=== PATIENT | female | born 1950 | race Caucasian/White ===

== ENCOUNTER 2019-09-17 22:01 | Emergency (ER) | payer OTHER ==
[2019-09-17 22:24] VITALS: BP 100/63; PULSE 94; TEMP 99; BMI 30.9
--- NOTE | 2019-09-17 23:36 | PDOC ---
*Physical Exam - Vital Signs Last Vital Signs Temp Pulse Resp BP Pulse Ox 99.0 F 94 H 20 100/63 95 09/17/19 22:15 09/17/19 22:15 09/17/19 22:15 09/17/19 22:15 09/17/19 22:15 - Physical Exam 09/17/19 23:16 PCP: Dr. Freedom Dobbs at [facility] Psych: Dr. Davis at [facility] Development Technical Lead: Mehreen HPI: 69yo F pmh Alzheimer, dementia, schizophrenia, depression, HLD, BIBEMS after being a found missing person (missing for 1 hour). I spoke with clinical case manager Mehreen at [facility] who were the only staff memeber this afternoon when patient Pedro walked out and was missing for evening medications. Mehreen called 911, and police found Ms. Vasquez shortly thereafter. Mehreen expressed concern that their program is no longer a good fit as patient can walk in and out of the house but cannot be changes to a new facility due to state regulations. Memory problems, Alzheimer, dementia, cannot find adequate housing. Last time escaped was last winter. All: NKDA Meds: Zyprexa 10mg qHS, MVI, Donepezil Hcl 5mg qHS, Atorvastatin Ca 20mg qHS PMH: As above PSH: Denies Medical Decision Making - Medical Decision Making 09/17/19 23:36 69yo F pmh Alzheimer, dementia, schizophrenia, depression, HLD, BIBEMS after being a found missing person (missing for 1 hour). Discharge - Discharge Information Problems reviewed: Yes Clinical Impression/Diagnosis: Well adult exam Condition: Stable Disposition: HOME - Admission No - Follow up/Referral Referrals: Freedom Mondragon MD [Primary Care Provider] - - Patient Discharge Instructions Patient Printed Discharge Instructions: DI for Alzheimer's Disease, DI for Schizophrenia Additional Instructions: Please return to the hospital for any new or concerning symptoms. - Post Discharge Activity
--- NOTE | 2019-09-17 23:40 | PDOC ---
History of Present Illness - General Chief Complaint: Altered Mental Status Stated Complaint: EVALUATION Time Seen by Provider: 09/17/19 22:59 History Source: Patient Exam Limitations: No Limitations - History of Present Illness Initial Comments: 09/17/19 23:38 PCP: Dr. Freedom Dobbs at [facility] Psych: Dr. Davis at [facility] Mechanical Applications Engineer: Mehreen HPI: 69yo F pmh Alzheimer, dementia, schizophrenia, depression, HLD, BIBEMS after being a found missing person (missing for 1 hour). I spoke with case checker Mehreen at [facility] who were the only staff memeber this afternoon when patient Pedro walked out and was missing for evening medications. Mehreen called 911, and police found Ms. Vasquez shortly thereafter. Mehreen expressed concern that their program is no longer a good fit as patient can walk in and out of the house but cannot be changes to a new facility due to state regulations. Memory problems, Alzheimer, dementia, cannot find adequate housing. Last time escaped was last winter. All: NKDA Meds: Zyprexa 10mg qHS, MVI, Donepezil Hcl 5mg qHS, Atorvastatin Ca 20mg qHS PMH: As above PSH: Denies Past History - Travel History Traveled outside of the country in the last 30 days: No Close contact w/someone who was outside of country & ill: No - Medical History COPD: No Other medical history: alzheimer, dementia - Psycho-Social/Smoking History Smoking History: Never smoked - Substance Abuse Hx (Audit-C & DAST Scrn) How often the patient has a drink containing alcohol: Never Score: In Men: 4 or > Positive; In Women: 3 or > Positive: 0 Screen Result (Pos requires Nsg. Audit-10AR): Negative Review of Systems - Review of Systems Able to Perform ROS?: Yes Is the patient limited Kyrgyz proficient: Yes Constitutional: No: Chills, Diaphoresis, Fever, Weakness HEENTM: No: Ear Discharge, Nose Pain, Nose Congestion, Throat Pain Respiratory: No: Cough, Shortness of Breath, Wheezing Cardiac (ROS): No: Chest Pain, Lightheadedness, Palpitations ABD/GI: No: Constipated, Diarrhea, Nausea, Vomiting : No: Burning, Dysuria, Frequency Musculoskeletal: No: Back Pain, Muscle Pain, Muscle Weakness Integumentary: No: Flushing, Lesions, Lumps Neurological: No: Headache, Numbness, Tingling, Weakness Psychiatric: No: Change in Appetite Endocrine: No: Increased Thirst, Increased Urine Hematologic/Lymphatic: No: Anemia, Blood Clots, Easy Bleeding All Other Systems: Reviewed and Negative *Physical Exam - Vital Signs Last Vital Signs Temp Pulse Resp BP Pulse Ox 99.0 F 94 H 20 100/63 95 09/17/19 22:15 09/17/19 22:15 09/17/19 22:15 09/17/19 22:15 09/17/19 22:15 - Physical Exam 09/17/19 23:39 Vitals reviewed, AFVSS GEN: Well appearing, appears stated age, NAD, comfortable. AAOx2. HEENT: NCAT, EOMI, PERRL. Sclera anicteric, noninjected. No facial asymmetry. Moist mucous membranes. Normal voice. Trachea midline. CV: RRR, S1/S2, no murmurs / rubs / gallops appreciated. LUNG: CTABL, normal work of breathing. No wheezes, rales, rhonchi. No cough. Speaking full sentences. GI: Soft, NTND, +BS, no guarding, no rebound. No masses. EXTREMITIES: 2+ distal pulses. No clubbing / cyanosis / edema. No gross deformity in any extremity. SKIN: Warm, dry, no rashes appreciated, non-jaundiced. PSYCH: Normal mood and affect. Cooperative and appropriate. NEURO: CN grossly intact. Moving all extremities well. Normal strength and sensation grossly. Medical Decision Making - Medical Decision Making 09/17/19 23:39 69yo F pmh Alzheimer, dementia, schizophrenia, depression, HLD, BIBEMS after being a found missing person (missing for 1 hour). History notable for missing for 1 hour, baseline MSE. Exam unremarkable aside from confusion, A&Ox2. Stable for return to care facility. Discharge - Discharge Information Problems reviewed: Yes Clinical Impression/Diagnosis: Well adult exam Condition: Stable Disposition: HOME - Admission No - Follow up/Referral Referrals: Freedom Mondragon MD [Primary Care Provider] - - Patient Discharge Instructions Patient Printed Discharge Instructions: DI for Alzheimer's Disease, DI for Schizophrenia Additional Instructions: Please return to the hospital for any new or concerning symptoms. - Post Discharge Activity
--- NOTE | 2019-09-17 23:59 | PDOC ---
Documentation entered by Martha Sheppard SCRIBE, acting as scribe for Matty Lopez MD. Matty Lopez MD: This documentation has been prepared by the Valarie sharma Nirvannie, SCRIBE, under my direction and personally reviewed by me in its entirety. I confirm that the documentation accurately reflects all work, treatment, procedures, and medical decision making performed by me. Attending Attestation - Resident Resident Name: Eliecer Greenwood - ED Attending Attestation I have performed the following: I have examined & evaluated the patient, The case was reviewed & discussed with the resident, I agree w/resident's findings & plan, Exceptions are as noted - HPI HPI: 09/17/19 23:59 69 F with alzheimer's dementia, schizophrenia, depression, HLD, brought in by EMS after going missing from home. Pt states she was "going for a hike" but cannot provide further history due to advanced dementia. Per pt's home health care case manager Marisel, pt lives at [facility]. Pt has a history of wandering out of the house. Today, pt was missing for approx 1 hour before police found her. Pt has no complaints at this time. - Physicial Exam PE: 09/18/19 00:04 GENERAL: Awake, alert, in no acute distress. HEAD: No signs of trauma EYES: PERRLA, EOMI, sclera anicteric, conjunctiva clear ENT: Auricles normal inspection, hearing grossly normal, nares patent, oropharynx clear without exudates. Moist mucosa NECK: Nontender, no stepoffs, Normal ROM, supple, no lymphadenopathy, JVD, or masses LUNGS: Breath sounds equal, clear to auscultation bilaterally. No wheezes, and no crackles HEART: Regular rate and rhythm, normal S1 and S2, no murmurs, rubs or gallops ABDOMEN: Soft, nontender, normoactive bowel sounds. No guarding, no rebound. No masses EXTREMITIES: Normal range of motion, no edema. No clubbing or cyanosis. No cords, erythema, or tenderness NEUROLOGICAL: Cranial nerves II through XII intact. 5/5 strength and sensation in all extremities, Normal speech, normal gait, normal cerebellar function SKIN: Warm, Dry, normal turgor, no rashes or lesions noted. - Medical Decision Making 09/18/19 00:04 69 F with alzheimer's dementia brought in by EMS after wandering from home. No complaints. No clinical signs of injury. Pt at baseline mentation. No clinical evidence of acute pathology requiring medical evaluation. - DC back to home Pt is well appearing, with normal vitals. Clinically stable for DC at this time. I discussed the physical exam findings, ancillary test results and final diagnoses with the patient. I answered all of the patient's questions. The patient was satisfied with the care received and felt comfortable with the discharge plan and treatment plan. The patient agrees to follow up with the primary care physician within 24-72 hours. Please note this patient was evaluated during the COVID-19 crisis with the presidential [place] Act Declaration and the [place] governut executive order number 202. He/she was evaluated and clinical decisions were made relative to healthcare system resources as well as clinical picture during a pandemic crisis situation. Discharge - Discharge Information Problems reviewed: Yes Clinical Impression/Diagnosis: Well adult exam Condition: Stable Disposition: HOME - Follow up/Referral Referrals: Freedom Mondragon MD [Primary Care Provider] - - Patient Discharge Instructions Patient Printed Discharge Instructions: DI for Alzheimer's Disease, DI for Schizophrenia Additional Instructions: Please return to the hospital for any new or concerning symptoms. - Post Discharge Activity
== END 2019-09-18 01:38 | disposition home or self-care (01) ==
LOC: JER 22:01
DX: R41.0 Disorientation, unspecified (principal)
CPT/HCPCS: 99282-25

== ENCOUNTER 2019-11-19 07:14 | Emergency (ER) | payer OTHER ==
[2019-11-19 07:59] VITALS: BMI 28.3
[2019-11-19] MEDS ORDERED: DIPHTH,PERTUSS(ACELL),TET 0.5 ML DISP.SYRIN IM ONE ×2 (08:33→09:48)
[2019-11-19] MEDS ORDERED: BACITRACIN 15 GM TUBE TOPICAL OINTMENT TP ONE (09:08)
[2019-11-19] MEDS ORDERED: BACITRACIN 15 GM TUBE TOPICAL OINTMENT ONE (09:50)
--- NOTE | 2019-11-19 10:24 | PDOC ---
Documentation entered by Windy Morales SCRIBE, acting as scribe for Desiree Choi MD. Desiree Choi MD: This documentation has been prepared by the scribe, Windy Morales SCRIBE, under my direction and personally reviewed by me in its entirety. I confirm that the documentation accurately reflects all work, treatment, procedures, and medical decision making performed by me. Attending Attestation - Resident Resident Name: Man Robertson - ED Attending Attestation I have performed the following: I have examined & evaluated the patient, The case was reviewed & discussed with the resident, I agree w/resident's findings & plan, Exceptions are as noted - HPI HPI: 11/19/19 09:10 Patient is a 69 year old female with a significant past medical history of dementia, depression, and schizophrenia, who presents to the ED, from psych facility, after crawling under a fence trying to escape. Patient denies: falling, pain, difficulty breathing, chest pain, abdominal pain, back pain, or any other related symptoms. Allergies: NKDA - Physicial Exam PE: 11/19/19 10:01 GENERAL: Awake, alert, and fully oriented, in no acute distress HEAD: No signs of trauma EYES: PERRLA, EOMI, sclera anicteric, conjunctiva clear ENT: Auricles normal inspection, hearing grossly normal, nares patent, oropharynx clear without exudates. Moist mucosa NECK: Normal ROM, supple, no lymphadenopathy, JVD, or masses LUNGS: Breath sounds equal, clear to auscultation bilaterally. No wheezes, and no crackles HEART: Regular rate and rhythm, normal S1 and S2, no murmurs, rubs or gallops ABDOMEN: Soft, nontender, normoactive bowel sounds. No guarding, no rebound. No masses EXTREMITIES: Normal range of motion, no edema. No clubbing or cyanosis. No cords, erythema, or tenderness NEUROLOGICAL: Cranial nerves II through XII grossly intact. Normal speech, normal gait SKIN: Warm, Dry, normal turgor, no rashes or lesions noted. - Medical Decision Making Pt was observed trying to climb under a fence to leave the property. Noted to have multiple abrasions to her extremities, but no bony tenderness. Able to ambulate without difficulty. Stable for transfer back to long-term. She has an appointment for NH evaluation on 11/22. Discharge - Discharge Information Problems reviewed: Yes Clinical Impression/Diagnosis: Multiple abrasions Condition: Stable Disposition: HOME - Follow up/Referral Referrals: Freedom Mondragon MD [Primary Care Provider] - - Patient Discharge Instructions Patient Printed Discharge Instructions: DI for Abrasion Additional Instructions: Please make a follow up appointment with your primary care doctor as needed. If you experience any new, worsening, or concerning symptoms, including change in behavior, decreased alertness, lethargy, or any other concerns, please return to the emergency room. - Post Discharge Activity
--- NOTE | 2019-11-19 10:27 | PDOC ---
History of Present Illness - General Chief Complaint: Injury Stated Complaint: injury Time Seen by Provider: 11/19/19 07:26 - History of Present Illness Initial Comments: Jacqueline Vasquez is a 69 y/o female with PMH significant for dementia, depression, schizophrenia, brought in from psych facility today after she tried to crawl under a fence. Per nursing department chairperson, pt was found underneath a fence trying to crawl out of the facility. States that this has happened multiple times before and is the patient's baseline. The pt also endorses trying to escape and crawling underneath the fence, stating that "there is not enough room in the yard." Pt is A&Ox2 (person, place). Denies falling, or any other concerns. No pain. No chest pain/difficulty breathing. No abdominal pain or back pain. Pt is able to answer questions. Past History - Medical History Allergies/Adverse Reactions: Allergies Allergy/AdvReac Type Severity Reaction Status Date / Time No Known Allergies Allergy Verified 11/19/19 07:59 Home Medications: Ambulatory Orders Atorvastatin Ca [Lipitor] 20 mg PO HS 11/19/19 Daily Multivitamin Capsule 1 tab PO HS 11/19/19 Donepezil HCl 10 mg PO HS 11/19/19 Olanzapine [Zyprexa] 10 mg PO HS 11/19/19 COPD: No Dementia: Yes Psychiatric Problems: Yes (schizoprenia, depression) - Reproductive History Is Patient Now?: No - Psycho-Social/Smoking History Smoking History: Never smoked Review of Systems - Review of Systems Comments:: GENERAL/CONSTITUTIONAL: No fever or chills. No weakness._ HEAD, EYES, EARS, NOSE AND THROAT: No change in vision. No change in hearing. No sore throat._ CARDIOVASCULAR: No chest pain or shortness of breath_ RESPIRATORY: Denies cough, hemoptysis_ GASTROINTESTINAL: No nausea, vomiting, diarrhea or constipation._ GENITOURINARY: No dysuria, frequency, or change in urination._ MUSCULOSKELETAL: No joint or muscle swelling or pain. No neck or back pain._ SKIN: No rash_ NEUROLOGIC: No headache, vertigo, loss of consciousness, or change in strength/sensation._ ENDOCRINE: No increased thirst. No abnormal weight change_ HEMATOLOGIC/LYMPHATIC: No anemia, easy bleeding, or history of blood clots._ ALLERGIC/IMMUNOLOGIC: No hives or skin allergy._ *Physical Exam - Vital Signs Last Vital Signs Temp Pulse Resp BP Pulse Ox 97.5 F L 55 L 16 122/70 100 11/19/19 07:15 11/19/19 07:15 11/19/19 07:15 11/19/19 07:15 11/19/19 07:15 - Physical Exam GENERAL: Awake, alert, and oriented to person/place, in no acute distress_ HEAD: No signs of trauma, normocephalic, atraumatic. No racoon's eyes or cote signs. EYES: PERRLA, EOMI, sclera anicteric, conjunctiva clear_ ENT: Hearing grossly normal, nares patent, oropharynx clear without exudates. No uvular deviation. Moist mucosa. No hemotympanum. NECK: Normal ROM, supple, no lymphadenopathy, JVD, or masses. No c-spine TTP. LUNGS: No distress, speaks in full sentences, clear to auscultation bilaterally _ HEART: Regular rate and rhythm, normal S1 and S2, no murmurs appreciated, peripheral pulses normal and equal bilaterally._ ABDOMEN: Soft, nontender, normoactive bowel sounds. No guarding, no rebound. No masses_ EXTREMITIES: +superficial abrasions over bilateral knees and right hand. Normal range of motion, no edema. No clubbing or cyanosis. No deformities. No ecchymosis. NEUROLOGICAL: Cranial nerves II through XII grossly intact. Normal speech, normal gait, no focal sensorimotor deficits _ SKIN: Warm, Dry, normal turgor, no rashes or lesions noted_ ED Treatment Course - Medications Given in the ED: ED Medications Discontinued Medications Generic Name Dose Route Start Last Admin Trade Name Juliánq PRN Reason Stop Dose Admin Bacitracin 1 applic 11/19/19 09:08 11/19/19 10:01 Bacitracin - TP 11/19/19 09:09 1 applic ONCE ONE Administration Diphtheria/Tetanus/Acell Pertussis 0.5 ml 11/19/19 08:33 11/19/19 10:00 Boostrix - IM 11/19/19 08:34 0.5 ml .ONCE ONE Administration Medical Decision Making - Medical Decision Making This is a 69 y/o female hx of dementia/schizophrenia/depression presenting today from [facility] care facility after trying to crawl under a fence. Per pt's aide this is her baseline behavior. No focal neuro findings. Pt is able to bear weight. No signs of trauma. Story from patient and caregiver consistent with each other and with exam findings. No gross deformities or lacerations. We will order tetanus and bacitracin ointment over the abrasions. Plan to d/c home with PCP f/u PRN. All questions answered. Return precautions given. Pt's staff verbalized understanding and agreement with plan. Discharge - Discharge Information Problems reviewed: Yes Clinical Impression/Diagnosis: Multiple abrasions Condition: Stable Disposition: HOME - Admission No - Follow up/Referral Referrals: Freedom Mondragon MD [Primary Care Provider] - - Patient Discharge Instructions Patient Printed Discharge Instructions: DI for Abrasion Additional Instructions: Please make a follow up appointment with your primary care doctor as needed. If you experience any new, worsening, or concerning symptoms, including change in behavior, decreased alertness, lethargy, or any other concerns, please return to the emergency room. - Post Discharge Activity
[2019-11-19 10:43] VITALS: BP 141/57; PULSE 61; TEMP 97.4
== END 2019-11-19 10:55 | disposition home or self-care (01) ==
LOC: JER 07:14
PROC: 3E0234Z Introduction of Serum, Toxoid and Vaccine into Muscle, Percutaneous Approach (ICD-10-PCS; principal; 2019-11-19)
DX: S80.211A Abrasion, right knee, initial encounter (principal); S80.212A Abrasion, left knee, initial encounter; S60.511A Abrasion of right hand, initial encounter
CPT/HCPCS: 90715; 99284-25